=== PATIENT | female | born 1970 | race African-American/Black ===

== ENCOUNTER 2021-06-11 10:14 | Emergency (ER) | payer OTHER ==
[2021-06-11 10:29] VITALS: BP 159/84; PULSE 77; TEMP 97.7; BMI 44.3
[2021-06-11] MEDS ORDERED: METHOCARBAMOL 500 MG TABLET PO ONE (11:13)
[2021-06-11] MEDS ORDERED: KETOROLAC TROMETHAMINE 30 MG/1 ML VIAL IM ONE (11:13)
[2021-06-11] MEDS ORDERED: KETOROLAC TROMETHAMINE 30 MG/1 ML VIAL ONE (11:35)
[2021-06-11] MEDS ORDERED: METHOCARBAMOL 500 MG TABLET ONE (11:35)
== END 2021-06-11 12:12 | disposition home or self-care (01) ==
LOC: JERFT 10:14
PROC: 3E0233Z Introduction of Anti-inflammatory into Muscle, Percutaneous Approach (ICD-10-PCS; principal; 2021-06-11)
DX: M54.50 Low back pain, unspecified (principal)
CPT/HCPCS: 72100-TC-FY; 96372; 99284-25